=== PATIENT | male | born 1970 | race Caucasian/White ===

== ENCOUNTER 2016-10-01 15:01 | Emergency (ER) | payer BC ==
[2016-10-01 15:15] VITALS: BP 139/86
[2016-10-01] MEDS ORDERED: methylPREDNISolone Sodium Succinate 125 MG/2 ML SDV IM ONE (15:53)
[2016-10-01] MEDS ORDERED: Albuterol/Ipratropium 3.0-0.5 MG/3 ML Neb Soln NEB ONE (15:53)
[2016-10-01] MEDS ORDERED: Codeine/guaiFENesin 100-10 MG/5 ML Syrup 5 ML Cup PO ONE (16:37)
--- NOTE | 2016-10-01 16:45 | EDM.PDOC ---
ED HISTORY OF PRESENT ILLNESS - General Chief Complaint: Respiratory Problem Stated Complaint: congestion, ear pressure Time Seen by Provider: 10/01/16 15:31 Source of Information: Reports: Patient History Limitations: Reports: No limitations - History of Present Illness INITIAL COMMENTS - FREE TEXT/NARRATIVE: Patient sick with cough, congestion, ear pressure for 4 days. Taking OTC cold meds. No fevers measured. Coughing up green mucus at times. Has headache. Cranberry chilled and had hot flashes at times. Came back from a one week vacation to [facility] . Has mildly itchy rash involving left foot also. No GI/ changes. No other pain complaint. ROS otherwise negative. Past medical history overall unremarkable but did have Non-Hodgkin's Lymphoma in past. - Related Data Allergies/ADRs: Allergies Allergy/AdvReac Type Severity Reaction Status Date / Time No Known Allergies Allergy Verified 10/01/16 15:15 Home Meds: Home Meds Albuterol [Ventolin HFA] 0 gm INH Q6H PRN #1 inhaler 10/01/16 [Rx] Codeine/guaiFENesin [guaiFENesin-Codeine Syrup] 240 ml PO ASDIRECTED PRN #1 bottle 10/01/16 [Rx] Fluticasone Propionate 1 spray NASBOTH DAILY 10/01/16 [History] Loratadine [Claritin] 10 mg PO DAILY 10/01/16 [History] Multivitamin [Men's Multi-Vitamin] 1 each PO DAILY 10/01/16 [History] predniSONE [Prednisone] 20 mg PO DAILY #8 tablet 10/01/16 [Rx] Past Medical History HEENT History: Reports: Sinusitis Genitourinary History: Reports: Renal calculus Oncologic (Cancer) History: Reports: Non-Hodgkin's Lymphoma - Infectious Disease History Infectious Disease History: Reports: Chicken pox - Past Surgical History HEENT Surgical History: Reports: LASIK Male Surgical History: Reports: Renal Calculus Oncologic Surgical History: Reports: Other (see below) Other Oncologic Surgeries/Procedures: lymph node removal in right groin Social & Family History - Tobacco Use Smoking Status *Q: Former Smoker Years of Tobacco use: 12 Packs/Tins Daily: 1 Used Tobacco, but Quit: Yes Month Tobacco Last Used: 1 Second Hand Smoke Exposure: No - Caffeine Use Caffeine Use: Reports: Coffee - Recreational Drug Use Recreational Drug Use: No ED ROS GENERAL - Review of Systems Review Of Systems: ROS reveals no pertinent complaints other than HPI. ED EXAM, GENERAL - Physical Exam Exam: See Below Exam Limited By: No limitations General Appearance: alert, WD/WN, no apparent distress Eye Exam: bilateral eye: EOMI, PERRL Ears: normal external exam, normal canal, hearing grossly normal Ear Exam: bilateral ear: other (both TMs retracted, some clear fluid noted behind TMs. ) Nose: normal inspection Throat/Mouth: Normal inspection, Normal lips, Normal teeth, Normal gums, Normal oropharynx, Normal voice, No airway compromise Head: atraumatic, normocephalic Neck: normal inspection, supple, non-tender, full range of motion. No: lymphadenopathy (L), lymphadenopathy (R) Respiratory/Chest: no respiratory distress, no accessory muscle use, chest non- tender, wheezing (mild, bilateral lower lungs). No: crackles, rales, rhonchi, stridor, retractions Cardiovascular: regular rate, rhythm, no murmur GI/Abdominal: soft, non tender Back Exam: No: CVA tenderness (L), CVA tenderness (R) Extremities: normal range of motion, normal capillary refill Neurological: alert, oriented, normal cognition, normal gait, no motor/sensory deficits Psychiatric: normal affect, normal mood Skin Exam: Warm, Dry, Rash (papular eruption noted left lateral foot/lower leg. Confluent around 5th toe. No vesicles/pustules/redness/heat/drainage. ) Course - Vital Signs Last Recorded V/S: Last Vital Signs Temp 36.8 C 10/01/16 15:03 Pulse 90 10/01/16 15:03 Resp 20 10/01/16 15:03 BP 139/86 10/01/16 15:03 Pulse Ox 96 10/01/16 15:03 - Orders/Labs/Meds Orders: Active Orders 24 hr Category Date Time Status RT Aerosol Therapy [RC] ASDIRECTED Care 10/01/16 15:53 Ordered Chest 2V [CR] Stat Exams 10/01/16 15:41 Ordered Labs: Laboratory Tests 10/01/16 Range/Units 16:05 WBC 5.8 (4.0-10.2) K/uL RBC 4.85 (4.33-5.41) M/uL Hgb 14.8 (13.1-16.8) g/dL Hct 44.8 (39.0-49.0) % MCV 92.4 (84.0-98.0) fL MCH 30.5 (28.2-33.3) pg MCHC 33.0 (31.7-36.0) g/dL RDW 13.0 (11.2-14.1) % Plt Count 178 (150-350) K/uL Neut % (Auto) 51.6 (45.0-80.0) % Lymph % (Auto) 30.3 (10.0-50.0) % Roosevelt % (Auto) 12.6 (2.0-14.0) % Eos % (Auto) 5.2 H (0.0-5.0) % Baso % (Auto) 0.3 (0.0-2.0) % Neut # (Auto) 2.98 (1.40-7.00) K/uL Lymph # (Auto) 1.75 (0.50-3.50) K/uL Roosevelt # (Auto) 0.73 (0.00-1.00) K/uL Eos # (Auto) 0.30 (0.00-0.50) K/uL Baso # (Auto) 0.02 (0.00-0.20) K/uL Meds: Medications Discontinued Medications Generic Name Dose Route Start Last Admin Trade Name Freq PRN Reason Stop Dose Admin Albuterol/Ipratropium 3 ml 10/01/16 15:53 10/01/16 15:57 Duoneb 3.0-0.5 Mg/3 Ml NEB 10/01/16 15:54 3 ml ONETIME ONE Administration Guaifenesin/Codeine Phosphate 10 ml 10/01/16 16:37 10/01/16 16:41 Robitussin Ac PO 10/01/16 16:38 10 ml ONETIME ONE Administration Methylprednisolone Sodium Succinate 125 mg 10/01/16 15:53 10/01/16 15:57 Solu-Medrol IM 10/01/16 15:54 125 mg ONETIME ONE Administration - Radiology Interpretation Free Text/Narrative:: Chest film overall unremarkable, minimal patchy appearance suggestive of bronchitis - Re-Assessments/Exams Free Text/Narrative Re-Assessment/Exam: 10/01/16 17:11 CBC normal. Suspect rash is due to irritant dermatitis. Uncertain as to cause at this time. May have been in contact with source while in [facility]. It should improve with Prednisone course. Patient is to watch for any changes and follow up if rash worsens. Suspect acute viral respiratory illness. Antibiotics not indicated at this time. Given Solumedrol and DuoNeb as well as Robit AC dose. Rx for additional Prednisone, Albuterol MDI, and Robitussin AC given. Patient to follow up if this does not follow normal viral course. Departure - Departure Time of Disposition: 16:39 Disposition: Home, Self-Care 01 Condition: good Clinical Impression: Respiratory tract infection Clinical Impression: (Ruled Out): Upper respiratory infection Prescriptions: Albuterol [Ventolin HFA] 0 gm INH Q6H PRN #1 inhaler PRN Reason: Cough Codeine/guaiFENesin [guaiFENesin-Codeine Syrup] 240 ml PO ASDIRECTED PRN #1 bottle PRN Reason: Cough predniSONE [Prednisone] 20 mg PO DAILY #8 tablet Instructions: Acute Bronchitis, [id number] Referrals: PCP,Unknown [Primary Care Provider] - Forms: ED Department Discharge Additional Instructions: Follow up as needed if this does not follow normal viral course. - My Orders Last 24 Hours: My Active Orders 10/01/16 15:41 Chest 2V [CR] Stat 10/01/16 15:53 RT Aerosol Therapy [RC] ASDIRECTED - Assessment/Plan Last 24 Hours: My Active Orders 10/01/16 15:41 Chest 2V [CR] Stat 10/01/16 15:53 RT Aerosol Therapy [RC] ASDIRECTED
== END 2016-10-01 16:55 | disposition home or self-care (01) ==
LOC: LL.ED 15:01
DX: J98.8 Other specified respiratory disorders (principal); R21 Rash and other nonspecific skin eruption; Z87.891 Personal history of nicotine dependence; Z79.899 Other long term (current) drug therapy
CPT/HCPCS: 36415; 71020; 85025; 94640; 96372; 99284; A9270; J2930